=== PATIENT | female | born 1975 | race Two or more races ===

== ENCOUNTER 2025-01-31 19:47 | Emergency (ER) | payer MEDICAID, SELFPAY ==
[2025-01-31 19:48] VITALS: BMI 34.0
[2025-01-31 20:57] VITALS: BP 148/83; PULSE 65; RESP 16; TEMP 37.1; O2SAT 100
--- NOTE | 2025-01-31 21:04 | XR_ITS ---
Examination: Venous duplex lower extremity sonogram, bilateral. Date and time of exam: January 31, 2025 2124 hrs. Indications: Bilateral leg swelling and pain beginning 2 weeks ago Technique: Multiple sonographic images of the deep venous system have been obtained. B-mode/2-D grayscale imaging of vascular structures and Doppler spectral analysis (waveforms) and color performed Both legs are examined. Findings: Deep venous systems do not demonstrate abnormal echogenicity. All visualized deep veins exhibit compressibility. All visualized deep veins exhibit augmentation. Impression: Negative for deep vein thrombosis
--- NOTE | 2025-01-31 21:06 | EDNOTE_ITS ---
ED Extremity Problem RME/HPI General Chief complaint: Extremity Injury, Lower Stated complaint: LOWER EXT SWELLING WORSE ON THE L LEG Time Seen by Provider: 01/31/25 21:01 Arrival date/time: 01/31/25 19:47 49F with history of HTN presents to ED with 2 week of BLE swelling and some pain. Patient denies SOB. Mostly normal intake/output, but possibly less urination in the past 2 days. Patient was sent by PCP to r/o DVT. Limitations: no limitations Related Data Previous Rx's ?Medication ?Instructions ?Recorded cephalexin 500 mg capsule 500 mg PO BID #14 caps 11/12 hydrocodone 5 mg-acetaminophen 325 1 tab PO Q6H PRN pa in #30 tabs 11/12/21 mg tablet Allergies Allergy/AdvReac Type Severity Reaction Status Date / Time No Known Allergies Allergy Verified 01/31/25 19:52 Review of Systems Review of Systems Systems Reviewed: All systems reviewed, normal except as documented Integumentary/Breasts Skin/Breast: Reports as per HPI and Reports skin swelling Past Medical History Past Medical History NEUROLOGIC: Negative Neurological Disorders or Seizures CARDIAC: Negative Cardiac Disorders or Congestive Heart Failure RESPIRATORY: Negative Chronic Obstructive Pulmonary Disease (COPD) GASTROINTESTINAL: Negative Gastrointestinal Disorders GENITOURINARY: Negative Genitourinary Disorders or Renal Disease MUSCULOSKELETAL: Negative Musculoskeletal Disorders ENT: Positive Ear Infection (LEFT) ENDOCRINE: Negative Endocrine Disorders, Diabetes Mellitus Type 1 or Diabetes Mellitus Type 2 HEMATOLOGIC: Positive Blood Disorders and Anemia OTHER HISTORY: Negative Autoimmune Disease, Blood Transfusions, Blood Transfusion Reaction, Anesthesia Reactions, MRSA, Clostridium Difficile or Cancer Family History FAMILY HISTORY: Positive Family Cardiac Disorders (mother-HTN); Negative Family Psychiatric Problems, Family Respiratory Disorders, Family Gastrointestinal Problems, Family Cancer, Family Surgery or Family Anesthesia Reaction Surgical History SURGICAL: Positive Section (X1); Negative Ear Surgery Social History SMOKING STATUS: Never smoker ED Exam General Limitations: Present no limitations General appearance: Present alert and in no apparent distress Head Head exam: Present atraumatic Neck Neck exam: Present normal inspection, full ROM and trachea midline Chest Chest inspection: Present normal inspection and symmetric chest wall rise Extremities Exam Extremities exam: Present full ROM Expanded Lower Extremity Exam Lower leg exam: Present full ROM and swelling Ankle exam: Present full ROM and swelling Foot/toe exam: Present full ROM and swelling Neurological Exam Neurological exam: Present alert, oriented X3 and CN II-XII intact Psychiatric Psychiatric exam: Present normal affect and normal mood Skin Skin exam: Present warm, dry, intact and normal color Course Quality Measures none Orders Category Date Time Status US venous doppler LE BI Stat Exams 01/31/25 21:04 Completed Vital Signs Vital signs: Vital Signs Temperature 98.8 F 01/31/25 20:57 Pulse Rate 65 01/31/25 20:57 Respiratory Rate 16 01/31/25 20:57 Blood Pressure 148/83 H 01/31/25 20:57 Pulse Oximetry (%) 100 01/31/25 20:57 Oxygen Delivery Method Room Air 01/31/25 20:57 O2 at 100% on RA and WNLs Extremity Problem MDM Narrative MDM Narrative:: 49F with history of HTN presents to ED with 2 week of BLE swelling and some pain. Patient denies SOB. Mostly normal intake/output, but possibly less urination in the past 2 days. Patient was sent by PCP to r/o DVT. Physical exam reveals BLE swelling. No obvious redness. Gait normal. Normal WOB. Patient is afebrile, calm, and alert. US no DVT. Glue Sprayer given. Patient data External records reviewed:: [facility] previous records Clinical information provided by:: patient Social determinants that could affect healthcare access:: none Patient has the following chronic illnesses:: HTN How is presenting disease/condition affected by chronic disease/condition?: uneffected by Evaluation data The following diagnostics were reviewed and interpreted by me:: radiology exam(s) Lab and/or radiology exams considered but not ordered:: ordered Interpretation Summary: above Medications / Prescriptions Medications or Prescriptions considered but not ordered:: not ordered Medication administrations:: n/a Consultations Consultation(s) initiated? (list below): No Diagnosis Extremity Problem Differential Diagnosis: herpes zoster, gout, cellulitis, superficial thrombophlebitis, deep venous thrombosis of upper extremity, lower extremity edema, deep vein thrombosis of lower extremity and other (leg swelling) Most likely diagnosis given after review of the tests above:: leg swelling Admission Indicated Admission indicated?: not indicated Admission Request Was there a request for admission?: No Disposition Plan Disposition Plan: Discharge Discharge Attestation Discharge Attestation: The patient and all family members were given an opportunity to ask questions and understood the discharge instructions. Discharge instructions specifically effects, indications for sooner follow up or return to the emergency department, and the expected course of current diagnosis. Patient condition: Stable Discharge Plan Plan Patient Disposition: HOME (Self Care) Discharge Disposition comment: Stable Prescriptions/Referrals Prescriptions/Med Rec: No Action hydrocodone-acetaminophen 5-325 mg tablet 1 tab PO Q6H MDD 5 PRN (Reason: pain) Qty: 30 0RF cephalexin 500 mg capsule 500 mg PO BID Qty: 14 0RF Referrals: Loretta Coronado THRILL PERFORMER [Primary Care Provider] - In 1 week Problem List Clinical Impression: Leg swelling Patient/Caregiver Discharge Instructions Education Materials: ED Leg Swelling in Both Legs Additional Instructions: Please follow-up with PCP within 24-48 hours and return immediately if symptoms worsen. Follow-up with PCP for additional evaluation. Print Language: Tamazight Stand Alone Forms: Patient Portal Info Letter INGRIS/KEN Supervising Physician INGRIS/KEN Supervising Physician: Dr. Tsai
== END 2025-01-31 23:58 | disposition home or self-care (01) ==
PROVIDERS: Emergency Provider Emergency Medicine; PCP Nurse Practitioner Family
DX: M79.89 Other specified soft tissue disorders (principal)
CPT/HCPCS: 93970; 99283